=== PATIENT | male | born 1975 | race Two or more races ===

== ENCOUNTER 2023-07-07 12:06 | Emergency (ER) | payer MEDICAID, OTHER ==
[~2023-07-07] VITALS: Ht 170.2 cm; Wt 74.4 kg
[2023-07-07 12:55] VITALS: BP 130/90; PULSE 87; RESP 18; O2SAT 97
[2023-07-07] MEDS ORDERED: ONDANSETRON HCL 4 MG/2 ML VIAL IV ONE (15:00)
[2023-07-07] MEDS ORDERED: LOPE-20 PO (15:00)
[2023-07-07] MEDS ORDERED: ZOFR4T PO (15:00)
[2023-07-07] MEDS: ONDANSETRON ODT 4 MG TAB PO ONE (15:16)
== END 2023-07-07 15:19 | disposition home or self-care (01) ==
LOC: ER 12:06
DX: K52.9 Noninfective gastroenteritis and colitis, unspecified (principal); Z79.899 Other long term (current) drug therapy
CPT/HCPCS: 99283; Q0162

== ENCOUNTER 2024-07-29 11:57 | Emergency (ER) | payer OTHER ==
[~2024-07-29] VITALS: Ht 170.2 cm; Wt 76.1 kg
[~2024-07-29 11:57] MED LIST: LOPE-20 PO; ZOFR4T PO
[2024-07-29 12:50] VITALS: BP 127/90; PULSE 75; RESP 22; TEMP 99; O2SAT 98
--- NOTE | 2024-07-29 13:11 | ED.PDOC ---
Musculoskeletal HPI Comments 49 YEAR OLD MALE PRESENTS TO THE ED WITH CHIEF COMPLAINT OF MASS TO RIGHT WRIST. PATIENT REPORTS THAT HE HAS BEEN EXPERIENCING A MASS TO THE TOP OF HIS RIGHT WRIST FOR THE PAST 2 MONTHS WITH NO PAIN, REDNESS, OR DISCHARGE. PATIENT RELAYS THAT HE IS WORRIED IT MAY BE CANCEROUS. PATIENT DENIES ANY FEVER, CHILLS, NUMBNESS, OR PAIN AT THIS TIME. Chief Complaint: Upper Extremity Time Seen by MD: 13:07 Primary Care Provider: unknown Reviewed Notes: Nurses Notes, Medications, Allergies Allergies: Coded Allergies: NO KNOWN ALLERGIES (Unverified , 07/07/23) Home Meds Active Scripts Naproxen (Naproxen) 500 Mg Tab, 500 MG PO BID, #30 TAB Prov:THIAGO SPRINGER 07/29/24 Methylprednisolone (Medrol Dosepak) 4 Mg Eric, 4 MG PO UD, #21 TAB UAD Prov:THIAGO SPRINGER 07/29/24 Loperamide Hcl ([facility] ANTI-DIARRHEAL) 2 Mg Cap, 2 MG PO QIDP for 5 Days, #20 CAP 0 Refills Take as directed. Take 1 tablet immediately on arriving home. Then take 1 tablet after every loose bowel movement. Do not exceed more than 4 tablets in 1 day Prov:NIECY KLINE NP 07/07/23 Ondansetron Odt 4MG Tab (ZOFRAN PO) 4 Mg Tb, 4 MG PO Q8HP PRN for 5 Days, #15 TAB 0 Refills ODT TAB-DISSOLVE IN MOUTH, THEN SWALLOW Prov:NIECY KLINE NP 07/07/23 Information Source: Patient Mode of Arrival: Ambulatory Location: Right Extremity Location: Wrist Timing: Months Prehospital treatment: None Severity: Mild Able to Move Extremity: Yes Bear Weight: Fully Pain: None Mechanism: Spontaneous Circumstances: Spontaneous Onset of Symptoms: Spontaneous Symptoms: Swelling Associated signs and symptoms: None Past Medical History PAST MEDICAL HISTORY: Denies Surgical History: Denies all surgeries Family History Family History: Reviewed,noncontributory to illness Social History Smoker: Non-Smoker Alcohol: Denies ETOH Use Drugs: Denies Drug Use Lives In: Home Constitutional: denies: chills, diaphoresis, fatigue, fever, malaise, sweats, weakness, others EENTM: denies: blurred vision, double vision, ear bleeding, ear discharge, ear drainage, ear pain, ear ringing, eye pain, eye redness, hearing loss, mouth pain, mouth swelling, nasal discharge, nose bleeding, nose congestion, nose pain, photophobia, tearing, throat pain, throat swelling, voice changes, others Respiratory: denies: cough, hemoptysis, orthopnea, SOB at rest, shortness of breath, SOB with excertion, stridor, wheezing, others Cardiovascular: denies: chest pain, dizzy spells, diaphoresis, Dyspnea on exertion, edema, irregular heart beat, left arm pain, lightheadedness, palpitations, PND, syncope, others Gastrointestinal: denies: abdomen distended, abdominal pain, blood streaked bowels, constipated, diarrhea, dysphagia, difficulty swallowing, hematemesis, melena, nausea, poor appetite, poor fluid intake, rectal bleeding, rectal pain, vomiting, others Genitourinary: denies: burning, dysuria, flank pain, frequency, hematuria, incontinence, penile discharge, penile sore, pain, testicle pain, testicle swell ing, urgency, others Neurological: denies: dizziness, fainting, headache, left sided numbness, left sided weakness, numbness, paresthesia, pre-existing deficit, right sided numbness, right sided weakness, seizure, speech problems, tingling, tremors, weakness, others Musculoskeletal: denies: back pain, gout, joint pain, joint swelling, muscle pain, muscle stiffness, neck pain, others Integumetry: reports: lumps (RIGHT DORSAL HAND ), others (MASS/LUMP NOTED TO TOP OF RIGHT WRIST); denies: bruises, change in color, change in hair/nails, dryness, laceration, lesions, rash, wounds Allergic/Immunocompromised: denies: Difficulty Healing, Frequent Infections, Hives, Itching, others Hematologic/Lymphatic: denies: anemia, blood clots, easy bleeding, easy bruising, swollen glands, others Endocrine: denies: excessive hunger, excessive sweating, excessive thirst, excessive urination, flushing, intolerance to cold, intolerance to heat, unexplained weight gain, unexplained weight loss, others Psychiatric: denies: anxiety, bipolar disorder, depression, hopeless, panic disorder, schizophrenia, sleepless, suicidal, others All Other Systems: Reviewed and Negative Physical Exam General Appearance: No Apparent Distress, Normal HEENT: Normal ENT Inspection, PERRL/EOMI Neck: Full Range of Motion, Non-Tender, Normal, Normal Inspection Respiratory: Chest Non-Tender, Lungs Clear, No Accessory Muscle Use, No Respiratory Distress, Normal Breath Sounds Cardiovascular: No Edema, No JVD, No Murmur, No Gallop, Normal Peripheral Pulses, Regular Rate/Rhythm Breast Exam: Deferred Gastrointestinal: No Organomegaly, Non Tender, No Pulsatile Mass, Normal Bowel Sounds, Soft Genitalia: Deferred Pelvic: Deferred Rectal: Deferred Extremities: No calf tenderness, Normal capillary refill, Normal range of motion, No pedal edema, Tender (WITH A GANGLION ON RIGHT DORSAL WRIST, NO BONY TENDERNESS AND SWELLING. ) Musculoskeletal : Apperance: Normal Neurologic: Alert, messaging architect II-XII nml as Tested, No Motor Deficits, Normal Affect, Normal Mood, No Sensory Deficits Cerebellar Function: Normal Reflexes: Normal Skin: Dry, Normal Color, Warm, Other ([id number] CYST, MOVABLE, NO REDNESS, SWELLING AND OPEN WOUND, +GANGLION CYST. ) Peripheral Pulses: 2+ carotid (R), 2+ carotid (L), 2+ Radial (R), 2+ Radial (L) Lymphatic: No Adenopathy Was a procedure done? Was a procedure done?: No Differential Diagnosis EXT Differential Diagnosis: Arthritis, Bursitis Other Differential Diagnosis GANGLION CYST X-Ray, Labs, Meds, VS Vital Signs Date Time Temp Pulse Resp B/P (MAP) Pulse Ox O2 Delivery O2 Flow Rate FiO2 07/29/24 12:50 75 22 98 Room Air 07/29/24 12:50 99.0 75 22 127/90 (102) 98 99.0 07/29/24 12:24 99.0 25 22 127/90 (102) 98 99.0 X-Ray, Labs, Meds, VS Comment EXTERNAL MEDICAL RECORDS REVIEWED: [NONE] INDEPENDENT HISTORIANS: [NONE] SOCIAL DETERMINANTS OF HEALTH: [NONE] LABS ORDERED: NONE REVIEWED AND INTERPRETED RESULTS: NONE IMAGING ORDERED: NONE TREATMENTS ORDERED: NONE PROCEDURES PERFORMED: NONE CRITICAL CARE TIME: NONE I HAVE DISCUSSED THE PATIENT WITH THE ATTENDING PHYSICIAN [[email or web address]] AND HE AGREES WITH THE PATIENT'S PLAN OF CARE AND DISPOSITION. BASED ON HISTORY OF PRESENT ILLNESS, AND PHYSICAL EXAM, PATIENT WILL BE DISCHARGED HOME. DISCUSSED PLAN FOR DISCHARGE HOME. RX: MEDROL DOSE PACK AND NAPROXEN SHARED DECISION MAKING: DISCUSSED WITH PATIENT THAT THEIR WORKUP WAS NORMAL. PATIENT INSTRUCTED TO FOLLOW UP WITH PRIMARY CARE PROVIDER IN 1-2 DAYS FOR RE- EVALUATION OF SYMPTOMS. PATIENT VERBALIZES UNDERSTANDING TO RETURN TO ED FOR NEW OR WORSENING SYMPTOMS OR IF FOLLOW UP WITH PCP CANNOT BE OBTAINED. PATIENT FEELS COMFORTABLE GOING HOME AT THIS TIME. ALL QUESTIONS ADDRESSED AT TIME OF DISCHARGE. Time of 1ST Reevaluation: 13:24 Reevaluation 1ST: Unchanged Patient Education/Counseling: Diagnosis, Treatment, Need For Follow Up Family Education/Counseling: Diagnosis, Treatment, No Family Present Medical Screening: No EMC Exist At This Time Departure 1 Departure Time of Disposition: 13:24 Impression: Primary Impression: Ganglion cyst of volar aspect of right wrist Disposition: HOME / SELF CARE / HOMELESS Condition: Stable Additional Instructions: FOLLOW-UP WITH PCP IN 1 TO 2 DAYS. TAKE MEDICATIONS PRESCRIBED. RETURN TO ED FOR ANY NEW OR WORSENING SYMPTOMS. e-Prescriptions Naproxen (Naproxen) 500 Mg Tab 500 MG PO BID, #30 TAB Prov: THIAGO SPRINGER 07/29/24 Methylprednisolone (Medrol Dosepak) 4 Mg Eric 4 MG PO UD, #21 TAB UAD Prov: THIAGO SPRINGER 07/29/24 Discharged With: Self Critical Care Note Critical Care Time?: No Stability Stability form required: No Heart Score Heart Score: Heart Score Response (Comments) Value History N/A 0 EKG N/A 0 Age N/A 0 Risk Factors N/A 0 Troponin N/A 0 Total 0 I personally scribed for THIAGO SPRINGER ([email or web address]) on 07/29/24 at 13:11. Electronically submitted by Allen Ortiz ([email or web address]). I personally scribed for THIAGO SPRINGER ([email or web address]) on 07/29/24 at 13:18. Electronically submitted by Allen Ortiz ([email or web address]). THIAGO SPRINGER Jul 29, 2024 13:11
[2024-07-29] MEDS ORDERED: NAPR-746 PO (13:20)
[2024-07-29] MEDS ORDERED: METH4PAK PO (13:20)
== END 2024-07-29 13:25 | disposition home or self-care (01) ==
LOC: ER 12:06
DX: M67.431 Ganglion, right wrist (principal); Z79.899 Other long term (current) drug therapy